=== PATIENT | female | born 2000 | race Caucasian/White ===

== ENCOUNTER 2025-01-08 09:57 | Inpatient (IN) | payer MEDICAID, OTHER ==
[2025-01-07 13:49] LABS: Hematocrit 34.5 % (34.9-44.5); Hemoglobin 11.0 g/dL (12.0-15.5); Platelet Count 299 10x3/uL (150-450)
[2025-01-07 14:19] LABS: Hep B Surf Ag Non-Reactive S/CO (NonReactive)
[2025-01-07 14:20] LABS: Syphilis Antibody Index 0.06 S/CO (<1.00 Non-Reactive)
[2025-01-08] MEDS ORDERED: Carboprost 250 MCG/ML AMP IM PRN (11:07)
[2025-01-08] MEDS ORDERED: Diphenoxylate HCl/Atropine Tablet PO PRN ×2 (11:07)
[2025-01-08] MEDS ORDERED: Bicitra 30 ML UDCUP PO PRN (11:07)
[2025-01-08] MEDS ORDERED: Tranexamic Acid 1,000 MG/10 ML VIAL IVP PRN (11:07)
[2025-01-08] MEDS ORDERED: Ondansetron PF 4 MG/2 ML Vial IVP PRN ×3 (11:07→15:13)
[2025-01-08] MEDS ORDERED: Famotidine/PF 20 mg/2ml Vial SLOW IVP PRN (11:07)
[2025-01-08] MEDS ORDERED: Acetaminophen 500 MG TAB PO PRN (11:07)
[2025-01-08] MEDS ORDERED: hydrALAZINE 20 MG/ML VIAL SLOW IVP PRN ×2 (11:07→17:49)
[2025-01-08] MEDS ORDERED: Methylergonovine 0.2 MG/ML VIAL IM PRN (11:07)
[2025-01-08] MEDS ORDERED: Oxytocin 30 units/NS 500 ML 500 ML IV SCH (11:15)
[2025-01-08] MEDS ORDERED: PHENYLEPHRINE-NS 100 MCG/ML 10 ML SYRINGE ONE (12:48)
[2025-01-08] MEDS ORDERED: Oxytocin 10 UNITS/ML VIAL ONE ×2 (12:48→14:49)
[2025-01-08] MEDS ORDERED: Phenylephrine 40 MG/NS 250 ML 250 ML ONE (12:55)
[2025-01-08] MEDS ORDERED: Ketorolac Tromethamine 30 MG (1 mL) VIAL ONE (12:55)
[2025-01-08] MEDS ORDERED: Methylergonovine 0.2 MG/ML VIAL ONE (13:48)
[2025-01-08] MEDS ORDERED: Tranexamic Acid 1,000 MG/10 ML VIAL ONE ×2 (13:49→14:49)
[2025-01-08] MEDS ORDERED: PROPOFOL 20 ML ONE (14:25)
[2025-01-08] MEDS ORDERED: diphenhydrAMINE 50 MG/ML VIAL IVP PRN (15:13)
[2025-01-08] MEDS ORDERED: Meperidine HCl/PF 25 MG (1 mL) VIAL SLOW IVP PRN (15:13)
[2025-01-08] MEDS ORDERED: HYDROmorphone 0.5 MG/0.5 ML SYRINGE SLOW IVP PRN (15:13)
[2025-01-08] MEDS ORDERED: Ketorolac Tromethamine 30 MG (1 mL) VIAL IVP SCH (15:15)
[2025-01-08] MEDS ORDERED: Communication Order-Pharmacy FS SCH (15:15)
[2025-01-08 16:37] VITALS: BMI 30.2
[2025-01-08] MEDS ORDERED: Lanolin Ointment 7 GM TUBE TOP PRN (17:49)
[2025-01-08] MEDS ORDERED: diphenhydrAMINE 25 MG CAP PO PRN (17:49)
[2025-01-08] MEDS: CEFAZOLIN 2 GM VIAL ONE (17:54)
[2025-01-08] MEDS: Ketorolac Tromethamine 30 MG (1 mL) VIAL IVP PRN (20:16)
[2025-01-09] MEDS ORDERED: HYDROcodone/Acetaminophen 5/325 mg Tablet PO PRN (03:15)
[2025-01-09 04:37] LABS: Hematocrit 27.1 % (34.9-44.5); Hemoglobin 8.9 g/dL (12.0-15.5); Mean Corpuscular Hemoglobin 27.0 pg (27.0-33.0); Mean Corpuscular Volume 82.1 fL (81.6-98.3); Platelet Count 222 10x3/uL (150-450); Red Blood Cell (RBC) Count 3.30 10x6/uL (3.90-5.03); White Blood Cell (WBC) Count 13.03 10x3/uL (3.5-10.5)
[2025-01-09] MEDS: HYDROcodone/Acetaminophen 5/325 mg Tablet PO PRN (09:16)
[2025-01-09] MEDS ORDERED: Measles/Mumps/Rubella 10 MCG/0.5 ML VIAL SC ONE (09:33)
[2025-01-09] MEDS ORDERED: Simethicone Chewable 80 MG TAB PO PRN (19:15)
[2025-01-09] MEDS: Ibuprofen 800 MG TAB PO SCH (21:30)
[2025-01-10] MEDS: Acetaminophen 500 MG TAB PO SCH (08:44)
[2025-01-10] MEDS: Ferrous Sulfate 325 MG TAB PO SCH (08:44)
[2025-01-10] MEDS: Iron Sucrose Complex 500 MG in Sodium Chloride 0.9% 250 ML 250 ML IVPB SCH (08:44)
[2025-01-10 09:43] LABS: #Basophils 0.04 10x3/uL (0.0-0.2); #Eosinophils 0.28 10x3/uL (0.0-0.5); #Monocytes 0.77 10x3/uL (0.0-1.1); #Neutrophils 8.94 10x3/uL (1.5-8.4); %Basophils 0.3 % (0.0-2.0); %Eosinophils 2.3 % (0.0-6.0); %Lymphocytes 17.3 % (18.0-47.0); %Monocytes 6.2 % (0.0-10.0); %Neutrophils 72.0 % (40.0-75.0); Hematocrit 26.1 % (34.9-44.5); Hemoglobin 8.3 g/dL (12.0-15.5); Mean Corpuscular Hemoglobin 26.9 pg (27.0-33.0); Mean Corpuscular Volume 84.5 fL (81.6-98.3); Platelet Count 258 10x3/uL (150-450); Red Blood Cell (RBC) Count 3.09 10x6/uL (3.90-5.03); White Blood Cell (WBC) Count 12.40 10x3/uL (3.5-10.5)
[2025-01-10 11:41] VITALS: TEMP 98.1
[2025-01-10 15:58] VITALS: BP 105/61
== END 2025-01-10 16:45 | disposition home or self-care (01) | DRG 784 ==
LOC: CSHLD 09:57 → CSHPP 17:33
PROVIDERS: ADMIT Obstetrics & Gynecology; ATTEND Obstetrics & Gynecology
PROC: 10D00Z1 Extraction of Products of Conception, Low, Open Approach (ICD-10-PCS; principal; 2025-01-08)
PROC: 0UB70ZZ Excision of Bilateral Fallopian Tubes, Open Approach (ICD-10-PCS; 2025-01-08)
PROC: 4A1HXCZ Monitoring of Products of Conception, Cardiac Rate, External Approach (ICD-10-PCS; 2025-01-08)
DX: O34.211 Maternal care for low transverse scar from previous cesarean delivery (principal); O98.52 Other viral diseases complicating childbirth; Z3A.39 39 weeks gestation of pregnancy; Z37.0 Single live birth; O24.429 Gestational diabetes mellitus in childbirth, unspecified control; O99.02 Anemia complicating childbirth
CPT/HCPCS: 36415; 51702; 82951; 85014; 85018; 85025; 85027; 85049; 86780; 86850; 86900; 86901; 87340; 88302; J1756; J1885; J2210; J2250; J2274; J2590; J2704; J7050; J7120